=== PATIENT | male | born 1970 | race American Indian/Alaskan Native ===

== ENCOUNTER 2021-10-02 19:40 | Emergency (ER) | payer SELFPAY ==
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
--- NOTE | 2021-10-02 21:15 | XRay Report ---
CHEST 1 VIEW 10/02/2021 8:09 PM INDICATION / CLINICAL INFORMATION: Chest pain. COMPARISON: None available. FINDINGS: SUPPORT DEVICES: None. HEART / MEDIASTINUM: No significant abnormality. LUNGS / PLEURA: No significant pulmonary abnormality. No significant pleural effusion. No pneumothora x. ADDITIONAL FINDINGS: No significant additional findings. IMPRESSION: 1. No acute abnormality of the chest. Signer Name: Jaspreet Pabon MD Signed: 10/02/2021 9:11 PM Workstation Name: [id number]
[2021-10-02 21:26] LABS: Basophils % (Auto) 0.5 % (0.0-1.8); Eosinophils % (Auto) 0.3 % (0.0-4.3); Hematocrit 42.6 % (35.5-45.6); Hemoglobin 14.5 gm/dl (11.8-15.2); Lymphocytes # (Auto) 1.8 K/mm3 (1.2-5.4); Lymphocytes % (Auto) 18.1 % (13.4-35.0); Mean Corpuscular HGB Conc 34 % (32-34); Mean Corpuscular Volume 87 fl (84-94); Monocytes # (Auto) 0.9 K/mm3 (0.0-0.8); Monocytes % (Auto) 8.5 % (0.0-7.3); Platelet Count 205 K/mm3 (140-440); Red Blood Count 4.91 M/mm3 (3.65-5.03); Red Cell Distribution Width 14.6 % (13.2-15.2)
[2021-10-02 21:51] LABS: Alanine Aminotransferase 27 units/L (7-56); Albumin 4.5 g/dL (3.9-5); BUN/Creatinine Ratio 22; Blood Urea Nitrogen 24 mg/dL (9-20); Hemolysis Index 12
[2021-10-02 21:53] LABS: Benzodiazepines Screen,Urine Negative; Methadone Screen,Urine Negative; Opiate Screen,Urine Negative
[2021-10-02] MEDS ORDERED: SODIUM CHLORIDE 0.9% 1000 ML 1,000 ML IV ONE (22:07)
[2021-10-02 22:14] LABS: Amphetamine Screen,Urine Positive; Cannabinoid Screen,Urine Positive; Cocaine Screen,Urine Positive
[2021-10-02] MEDS ORDERED: KETOROLAC 30 MG/1 ML INJ IV ONE (22:54)
[2021-10-03 02:20] VITALS: BP 131/88
--- NOTE | 2021-10-03 08:58 | Electrocardiograph Report ---
[facility] Test Date: 2021-10-02 Test Time: 19:59:14 Pat Name: AVTAR PLATTER Department: Room: Gender: M Group Social Worker: SUZANNA : 1970 Requested By: NNEKA POWELL Order Number: [id number] Reading MD: Jerald Sanabria Measurements Intervals [place] Rate: 99 P: 71 SD: 141 QRS: 40 QRSD: 80 T: 71 QT: 368 QTc: 474 Interpretive Statements Gender not entered, assumed to be male for purpose of ECG interpretation Sinus rhythm Probable left atrial enlargement ST elev, probable normal early repol pattern No previous ECG available for comparison Electronically Signed On 10-03-2021 8:57:43 EST by Jerald Sanabria
== END 2021-10-03 01:30 | disposition home or self-care (01) ==
LOC: ED 19:40
DX: R07.89 Other chest pain (principal); F19.10 Other psychoactive substance abuse, uncomplicated; E11.9 Type 2 diabetes mellitus without complications; F17.200 Nicotine dependence, unspecified, uncomplicated; F12.10 Cannabis abuse, uncomplicated
CPT/HCPCS: 36415; 71045; 80053; 80307; 84484; 85025; 93005; 96361; 96374; 99284; J1885; J7030; 80320; Q0162; G0480